=== PATIENT | female | born 1970 | race American Indian/Alaskan Native ===

== ENCOUNTER 2020-09-21 19:25 | Emergency (ER) | payer SELFPAY ==
--- NOTE | 2020-09-21 21:06 | XRay Report ---
LEFT ANKLE 4 VIEWS INDICATION / CLINICAL INFORMATION: Injury with left ankle pain.. COMPARISON: None available. FINDINGS: BONES / JOINT(S): There is internal fixation of the distal tibia. There is an acute comminuted fractu re of the distal fibular metadiaphysis with posterior and lateral angulation of the distal fracture f ragment. There is an acute transverse fracture of the medial malleolus. There is also a mildly displa ruth fracture of the posterior malleolus. There is posterior lateral dislocation of the talus in relat ionship to the tibia. A small plantar calcaneal spur is noted. SOFT TISSUES: There is moderate generalized soft tissue swelling. ADDITIONAL FINDINGS: None. IMPRESSION: Acute fracture/dislocation of the left ankle. Signer Name: Andrei Thayer MD Signed: 09/21/2020 9:01 PM Workstation Name: [id number]
[2020-09-21] MEDS ORDERED: HYDROmorphone 1 MG/1 ML INJ IV ONE ×3 (21:18→22:33)
[2020-09-21] MEDS ORDERED: ONDANSETRON 4 MG/2 ML INJ IV ONE (21:18)
--- NOTE | 2020-09-21 21:42 | Emergency Department Report ---
<CATRACHITO RIVERA III - Last Filed: 09/21/20 23:20> ED General Adult HPI - General Chief complaint: Extremity Injury, Lower Stated complaint: LT ANKLE PAIN PUI?: No Time Seen by Provider: 09/21/20 20:35 - Related Data Previous Rx's Medication Instructions Recorded Last Taken Type Naproxen 500 mg PO BID #20 tablet 09/21/20 Unknown Rx Ondansetron [Zofran Odt] 4 mg PO Q6H #12 tab.rapdis 09/21/20 Unknown Rx Oxycodone HCl/Acetaminophen 1 each PO Q6HR PRN #12 tablet 09/21/20 Unknown Rx [Percocet 10/325 mg] Allergies Allergy/AdvReac Type Severity Reaction Status Date / Time No Known Allergies Allergy Unverified 09/21/20 20:21 ED Past Medical Hx - Medications Home Medications: Home Medications Medication Instructions Recorded Confirmed Last Taken Type Naproxen 500 mg PO BID #20 tablet 09/21/20 Unknown Rx Ondansetron [Zofran Odt] 4 mg PO Q6H #12 tab.rapdis 09/21/20 Unknown Rx Oxycodone HCl/Acetaminophen 1 each PO Q6HR PRN #12 tablet 09/21/20 Unknown Rx [Percocet 10/325 mg] ED Course - Reevaluation(s) Reevaluation #1: I reviewed the findings and management of this patient in real-time and I have personally seen and examined this patient and participated in the decision making for this patient with the midlevel. Patient is a 50-year-old female that presents emergency room for status post fall and left ankle pain. Patient said pain is severe. Patient has swelling to the ankle. I examined the patient. Patient's lung sounds are clear. Patient's CV exam shows normal S1-S2 and no murmur. Patient's left ankle shows ecchymosis, swelling and tenderness to palpation. Patient had x-ray done which showed a trimalleolar and dislocation. I personally reviewed the x-ray. I discussed all results and clinical findings with patient. I discussed plan of care with patient. Patient agrees with plan of care. I will discuss the case further with our orthopedics. 09/21/20 21:43 Reevaluation #2: Patient had a reduction and splint placement. The [place] JIMENEZ I placed the splint. Patient was given Dilaudid just prior for pain. Patient was placed on the senior sales representative. Patient tolerated procedure well. Patient did not have any abnormal vital signs during the procedure. See procedure notes. 09/21/20 22:46 Reevaluation #3: The post film shows adequate reduction. I discussed all results and clinical findings with patient. I discussed plan of care with patient. Patient agrees with plan of care. Patient is stable for discharge. Patient will be discharged home. Patient given discharge instructions. Patient voiced understanding of discharge instructions. 09/21/20 23:19 - Consultations Consultation #1: I consulted Ortho, Dr. Cisneros. Dr. Cisneros states the patient can have a posterior splint placed and discharged home and he will see the patient in the office on Thursday. 09/21/20 22:29 - Orthopedic Fracture Reduction Fracture #1 Consent Obtained: verbal consent, emergent situation Time Out Performed: Yes Side: left Fracture Reduction Location: tibia, fibula Analgesia: other Technique: direct manipulation, traction/counter-traction Post-Reduction Neuro Exam: intact, no change Post-Reduction Vascular Exam: intact, no change Splint Applied: No Patient Tolerated Procedure: well, no complications - Orthopedic Joint Reduction Joint #1 Consent Obtained: verbal consent, emergent situation Time Out Performed: Yes Side: left Joint Reduction Location: ankle Analgesia: other Technique Used: traction/counter-traction, direct manipulation Post-Reduction Neuro Exam: intact, no change Post-Reduction Vascular Exam: intact, no change Post Reduction X-Ray Obtained: Yes Post Reduction X-Ray Results: reduced Splint Applied: No Patient Tolerated Procedure: well, no complications - Orthopedic Splinting/Casting Injury #1 Side: left Lower Extremity Injury Location: ankle Lower Extremity Immobilizer: posterior splint Other Orthopedic Equipment: crutches Additional Comments: Neurovascular intact post splinting. ED Medical Decision Making - Radiology Data Left ankle radiograph, 2 views HISTORY: Postreduction. COMPARISON: Same-day radiograph from 8:46 PM. FINDINGS: There is improved alignment of the ankle joint status post reduction. Marked widening of the medial ankle gutter persists. There is minimal persistent posterior subluxation of the talar dome relative to the talar plafond without dislocation. Improved alignment of lateral malleolar fracture with persistent lateral displacement. Unchanged laterally displaced medial malleolar fracture. Small posterior malleolar fracture is better seen on prior study, though grossly unchanged. Multiple small ossific fragments project within the joint space. Visualized tibial hardware remains intact. No new skeletal abnormality. IMPRESSION: 1. Improved alignment of the ankle joint status post reduction with minimal persistent posterior subluxation without dislocation. Marked widening of medial ankle gutter persists. 2. Trimalleolar ankle fractures. - Differential Diagnosis Sprain, strain, fracture, ankle pain Critical Care Time: Yes Critical care time in (mins) excluding proc time.: 35 Critical Care Time: 35 minutes ED Disposition Clinical Impression: Trimalleolar fracture of left ankle Qualifiers: Encounter type: initial encounter Fracture type: closed Qualified Code(s): S82.852A - Displaced trimalleolar fracture of left lower leg, initial encounter for closed fracture Dislocation of ankle, left, closed Qualifiers: Encounter type: initial encounter Qualified Code(s): S93.05XA - Dislocation of left ankle joint, initial encounter Disposition: - TO HOME OR SELFCARE Is pt being admited?: No Does the pt Need Aspirin: No Condition: Stable Instructions: Closed Reduction for Ankle Fracture or Dislocation, Care After, Ankle Fracture, [id number] Additional Instructions: Take Naprosyn twice daily with food as needed for pain. If Naprosyn is not sufficient in controlling your pain, take Percocet with food as directed. Do not consume alcohol while taking this medication. Do not drive or operate machinery while taking this medication. Take Zofran as directed for nausea. Keep left ankle elevated as often as possible to reduce swelling. Wear splint as directed. Use crutches as needed. Follow-up with Dr. Cisneros, orthopedics, this week. Call Thursday to schedule an appointment. See referral information below. Return to the emergency department immediately for new or worsening symptoms. Prescriptions: Naproxen 500 mg PO BID #20 tablet Oxycodone HCl/Acetaminophen [Percocet 10/325 mg] 1 each PO Q6HR PRN #12 tablet PRN Reason: Pain Ondansetron [Zofran Odt] 4 mg PO Q6H #12 tab.rapdis Referrals: JASON CISNEROS MD [Staff Physician] - 3-5 Days Forms: Work/School Release Form(ED) <NINO GUZMAN - Last Filed: 09/21/20 23:56> ED General Adult HPI - General Source: patient Mode of arrival: Ambulatory Limitations: No Limitations - History of Present Illness Initial comments: 50-year-old female patient with history of left ankle reconstruction presents to the emergency department with complaints of traumatic left ankle pain starting today. Patient states she was walking to the refrigerator when she accidentally fell and twisted her ankle. There was no resulting head injury or loss of consciousness. Patient did not take any medications prior to arrival. No other injuries. Denies hip pain, knee pain, paresthesias, numbness, weakness. Denies all other complaints at this time. Severity scale (0 -10): 9 ED Review of Systems ROS: Stated complaint: LT ANKLE PAIN Other details as noted in HPI Other: GENERAL: Negative for fever. CARDIOVASCULAR: Negative for chest pain. PULMONARY: Negative for shortness of breath. GASTROINTESTINAL: Negative for abdominal pain. MUSCULOSKELETAL: Positive for left ankle pain. NEUROLOGICAL: Negative for headache. INTEGUMENTARY: Negative for rash. ED Past Medical Hx - Past Medical History Previous Medical History?: No - Surgical History Past Surgical History?: Yes Additional Surgical History: Hardware left ankle. - Social History Smoking Status: Current Every Day Smoker Substance Use Type: Alcohol ED Physical Exam - General Limitations: No Limitations - Other Other exam information: General: Awake, appropriately interactive, no acute distress. Neck: Supple. Full range of motion intact. Cardiovascular: Normal peripheral perfusion. Pulmonary: No respiratory distress. Patient is speaking normally without use of accessory muscles. Skin: No apparent rashes or lesions. Neurological: No facial asymmetry. Speech is clear. Follows commands. Patient is alert and oriented. Musculoskeletal: Tenderness to palpation throughout the left ankle with obvious soft tissue swelling and diffuse ecchymosis. Limited range of motion in all directions secondary to pain/swelling. No plantar ecchymosis. No tenderness along the dorsum of the foot or along the base of the fifth metatarsal. Unable to bear weight. Distal neurovascular and motor/sensory function intact. Psych: Cooperative. Appropriate mood and affect. ED Course Vital Signs 09/21/20 09/21/20 09/21/20 20:13 21:30 21:31 Temperature 98.2 F Pulse Rate 94 H 87 Respiratory 18 16 18 Rate Blood Pressure 100/64 112/76 Blood Pressure [Left] O2 Sat by Pulse 97 98 Oximetry 09/21/20 09/21/20 09/21/20 21:34 21:46 22:01 Temperature Pulse Rate 87 89 Respiratory 18 22 18 Rate Blood Pressure 112/76 Blood Pressure 112/76 [Left] O2 Sat by Pulse 98 Oximetry 09/21/20 09/21/20 09/21/20 22:07 22:16 22:30 Temperature Pulse Rate 87 90 Respiratory 18 17 13 Rate Blood Pressure 103/65 107/64 Blood Pressure [Left] O2 Sat by Pulse 96 Oximetry 09/21/20 09/21/20 22:34 22:37 Temperature Pulse Rate Respiratory 18 18 Rate Blood Pressure Blood Pressure [Left] O2 Sat by Pulse Oximetry ED Medical Decision Making - Radiology Data Ordering Physician: SHARAD THOMAS MD Date of Service: 09/21/20 Procedure(s): XR ankle 3+V LT Accession Number(s): [id number] cc: SHARAD THOMAS MD Fluoro Time In Minutes: LEFT ANKLE 4 VIEWS INDICATION / CLINICAL INFORMATION: Injury with left ankle pain.. COMPARISON: None available. FINDINGS: BONES / JOINT(S): There is internal fixation of the distal tibia. There is an a cute comminuted fracture of the distal fibular metadiaphysis with posterior and lateral angulation of the distal fracture fragment. There is an acute transverse fracture of the medial malleolus. There is also a mildly displaced fracture of the posterior malleolus. There is posterior lateral dislocation of the talus in relationship to the tibia. A small plantar calcaneal spur is noted. SOFT TISSUES: There is moderate generalized soft tissue swelling. ADDITIONAL FINDINGS: None. IMPRESSION: Acute fracture/dislocation of the left ankle. Signer Name: Jason Thayer MD Signed: 09/21/2020 9:01 PM Workstation Name: [id number] Transcribed By: RT Dictated By: Jason Thayer MD Electronically Authenticated By: Jason Thayer MD Signed Date/Time: 09/21/202100 DD/ 58 TD/TT: - Medical Decision Making Differential diagnosis including but not limited to: sprain, strain, fracture, contusion, dislocation, Achilles tendon injury Patient presents to the emergency department with complaints of left ankle pain/swelling status post mechanical fall. X-ray showed trimalleolar fracture with ankle dislocation. See attached radiology report. After analgesia was achieved, the ankle was reduced and placed in a posterior splint without complications. See procedure note for details. On reevaluation, patient is stable and symptoms have improved. Pain is controlled. Repeat neurovascular exam remains intact. Repeat x-ray shows improved alignment. Case was discussed with Dr. Cisneros, orthopedics, who agrees with diagnostic work-up/plan of care and agrees to evaluate patient in the clinic on an outpatient basis. Patient will be discharged home with appropriate analgesics, crutches, and referral to orthopedics. Patient expressed understanding and is agreeable to plan of care. RICE precautions discussed. Strict return precautions provided Case discussed with Dr. Rivera, attending emergency physician, who personally evaluated the patient and agrees with diagnostic work-up/plan of care. Repeat exam is unremarkable and benign. History, exam, diagnostic testing, and current condition do not suggest worrisome pathology to warrant further testing, continued ED treatment, admission, or surgical evaluation at this point. Given the low probability of a significant medical illness, it would be more likely to result in harm than benefit to perform further testing at this stage. Discussed findings, presumptive diagnosis, need for follow-up and specific signs/symptoms that should prompt immediate return to the emergency department. Instructions were explained in detail to the patient in addition to giving written discharge information. Patient expressed understanding and was given the opportunity to ask questions, all of which were satisfactorily answered prior to discharge home. Critical care attestation.: If time is entered above; I have spent that time in minutes in the direct care of this critically ill patient, excluding procedure time. ED Disposition Is pt being admited?: No Does the pt Need Aspirin: No
--- NOTE | 2020-09-21 23:03 | XRay Report ---
Left ankle radiograph, 2 views HISTORY: Postreduction. COMPARISON: Same-day radiograph from 8:46 PM. FINDINGS: There is improved alignment of the ankle joint status post reduction. Marked widening of th e medial ankle gutter persists. There is minimal persistent posterior subluxation of the talar dome r elative to the talar plafond without dislocation. Improved alignment of lateral malleolar fracture wi th persistent lateral displacement. Unchanged laterally displaced medial malleolar fracture. Small po sterior malleolar fracture is better seen on prior study, though grossly unchanged. Multiple small os sific fragments project within the joint space. Visualized tibial hardware remains intact. No new ske letal abnormality. IMPRESSION: 1. Improved alignment of the ankle joint status post reduction with minimal persistent posterior subl uxation without dislocation. Marked widening of medial ankle gutter persists. 2. Trimalleolar ankle fractures. Signer Name: Javon Barrett MD Signed: 09/21/2020 10:58 PM Workstation Name: [id number]
[2020-09-22 00:20] VITALS: BP 113/51
== END 2020-09-21 23:30 | disposition home or self-care (01) ==
LOC: ED 19:25
DX: S82.852A Displaced trimalleolar fracture of left lower leg, initial encounter for closed fracture (principal); S93.05XA Dislocation of left ankle joint, initial encounter; Z79.899 Other long term (current) drug therapy; X58.XXXA Exposure to other specified factors, initial encounter; Y93.89 Activity, other specified; Y92.89 Other specified places as the place of occurrence of the external cause; Y99.8 Other external cause status
CPT/HCPCS: 27840; 73600; 73610; 96374; 96375; 96376; 99284; J1170; J2405

== ENCOUNTER 2020-10-01 19:18 | Emergency (ER) | payer SELFPAY ==
--- NOTE | 2020-10-02 00:15 | Emergency Department Report ---
ED General Adult HPI - General Chief complaint: Extremity Injury, Lower Stated complaint: BROKEN ANKLE RE-CHECK Time Seen by Provider: 10/01/20 22:43 Source: patient Mode of arrival: Wheelchair Limitations: Physical Limitation - History of Present Illness Initial comments: This is a 50-year-old female nontoxic, well nourished in appearance, no acute signs of distress presents to the ED for reassessment/follow-up of left ankle. Patient was seen several days ago and for dislocated/fractured ankle and has posterior OCL splint. Patient stated has worsening swelling and numbness/tingling sensation to left foot/ankle area. Patient denies any new injuries or trauma. Patient stated she just came to the ER for follow-up or for fracture as she was not able to follow-up with orthopedic doctor as instructed to her during her previous visit. Patient denies any fever, chills, nausea, vomiting, chest pain, shortness of breath, headache, stiff neck. Patient denies any joint swelling or joint redness. Patient denies any allergies. Location: lower extremity Radiation: non-radiation Severity scale (0 -10): 3 Quality: aching Consistency: constant Improves with: none Worsens with: none Associated Symptoms: denies other symptoms. denies: confusion, chest pain, cough, diaphoresis, fever/chills, headaches, loss of appetite, malaise, nausea/vomiting, rash, seizure, shortness of breath, syncope, weakness Treatments Prior to Arrival: none - Related Data Previous Rx's Medication Instructions Recorded Last Taken Type Naproxen 500 mg PO BID #20 tablet 09/21/20 Unknown Rx Ondansetron [Zofran Odt] 4 mg PO Q6H #12 tab.rapdis 09/21/20 Unknown Rx Oxycodone HCl/Acetaminophen 1 each PO Q6HR PRN #12 tablet 09/21/20 Unknown Rx [Percocet 10/325 mg] Allergies Allergy/AdvReac Type Severity Reaction Status Date / Time No Known Allergies Allergy Unverified 09/21/20 20:21 ED Review of Systems ROS: Stated complaint: BROKEN ANKLE RE-CHECK Other details as noted in HPI Comment: All other systems reviewed and negative Constitutional: denies: chills, fever Eyes: denies: eye pain, eye discharge, vision change ENT: denies: ear pain, throat pain Respiratory: denies: cough, shortness of breath, wheezing Cardiovascular: denies: chest pain, palpitations Endocrine: no symptoms reported Gastrointestinal: denies: abdominal pain, nausea, diarrhea Genitourinary: denies: urgency, dysuria, discharge Musculoskeletal: denies: back pain, joint swelling, arthralgia Skin: denies: rash, lesions Neurological: denies: headache, weakness, paresthesias Psychiatric: denies: anxiety, depression Hematological/Lymphatic: denies: easy bleeding, easy bruising ED Past Medical Hx - Past Medical History Previous Medical History?: No - Surgical History Past Surgical History?: Yes Additional Surgical History: Hardware left ankle. - Social History Smoking Status: Current Every Day Smoker Substance Use Type: Alcohol - Medications Home Medications: Home Medications Medication Instructions Recorded Confirmed Last Taken Type Naproxen 500 mg PO BID #20 tablet 09/21/20 Unknown Rx Ondansetron [Zofran Odt] 4 mg PO Q6H #12 tab.rapdis 09/21/20 Unknown Rx Oxycodone HCl/Acetaminophen 1 each PO Q6HR PRN #12 tablet 09/21/20 Unknown Rx [Percocet 10/325 mg] ED Physical Exam - General Limitations: No Limitations General appearance: alert, in no apparent distress - Head Head exam: Present: atraumatic, normocephalic - Eye Eye exam: Present: normal appearance - Neck Neck exam: Present: normal inspection, full ROM. Absent: lymphadenopathy - Respiratory Respiratory exam: Absent: respiratory distress - Cardiovascular Cardiovascular Exam: Present: normal rhythm - Extremities Exam Extremities exam: Present: normal capillary refill. Absent: joint swelling - Expanded Lower Extremity Exam Left Hip exam: Present: normal inspection, full ROM. Absent: tenderness, swelling Upper Leg exam: Present: normal inspection, full ROM. Absent: tenderness, swelling Knee exam: Present: normal inspection, full ROM, full knee extension. Absent: tenderness, swelling, abrasion, laceration, ecchymosis, deformity, crepidus, dislocation, erythema, effusion, pain w/ pronation/supination, posterior draw sign, pain/laxity with valgus, pain/laxity with varus Lower Leg exam: Present: normal inspection, full ROM. Absent: tenderness, swelling, abrasion, laceration, ecchymosis, deformity, crepidus, dislocation, erythema, palpable cord, Vance's sign Ankle exam: Present: tenderness, swelling, ecchymosis. Absent: abrasion, laceration, deformity, crepidus, dislocation, erythema, anterior draw sign Foot/Toe exam: Present: full ROM, tenderness, swelling, ecchymosis. Absent: abrasion, laceration, deformity, crepidus, dislocation, erythema, amputation, puncture wound, foreign body, calcaneal tenderness, tenderness at base of 5th metatarsal, nail avulsion, subungual hematoma Neuro vascular tendon exam: Present: no vascular compromise Gait: Positive: unable to bear weight - Back Exam Back exam: Present: full ROM - Neurological Exam Neurological exam: Present: alert, oriented X3 - Psychiatric Psychiatric exam: Present: normal affect, normal mood - Skin Skin exam: Present: warm, dry, intact, normal color. Absent: rash - Other Other exam information: short leg posterior splint present to left leg. Cecil laundry aide removed with me holding the ankle to make sure it did not move with history of dislocation. After reviewing it, a new splint a has placed. Post splint: Neurovasular intact; normal cap refill <2 second; normal sensation; denies decreaed sensation; normal ROM of digits. ED Course Vital Signs 10/02/20 01:20 Temperature 98.2 F Pulse Rate 90 Respiratory 20 Rate Blood Pressure 112/62 [Left] O2 Sat by Pulse 98 Oximetry - Reevaluation(s) Reevaluation #1: 10/02/20 00:25 Patient is speaking in full sentences with no signs of distress noted. ED Medical Decision Making - Medical Decision Making 50-year-old female that presents with reevaluation of splint. Patient is stable and was examined by me. All splint has been removed and a new splint has been applied with no manipulation due to previous dislocation. Post splint assessment: neurovasular intact; normal cap refill <2 second; normal sensation; denies decreaed sensation; normal ROM of digits. Patient also does have cru tches from previous visit. Patient was instructed to follow-up with a orthopedic doctor in 3-5 days or if symptoms worsen and continue return to emergency room as soon as possible. At time of discharge, the patient does not seem toxic or ill in appearance. No acute signs of distress noted. Patient agrees to discharge treatment plan of care. No further questions noted by the patient. Critical care attestation.: If time is entered above; I have spent that time in minutes in the direct care of this critically ill patient, excluding procedure time. ED Disposition Clinical Impression: Aftercare for cast or splint check or change Disposition: - TO HOME OR SELFCARE Is pt being admited?: No Does the pt Need Aspirin: No Condition: Stable Instructions: Cast or Splint Care, Adult Additional Instructions: Follow-up with a orthopedic doctor in 3-5 days or if symptoms worsen and continue return to emergency room as soon as possible. No physical activity that extremity until cleared by orthopedic doctor Referrals: PRIMARY MD WILTON [Primary Care Provider] - 3-5 Days JASON NEAL MD [Staff Physician] - 3-5 Days Time of Disposition: 01:25
[2020-10-02 01:21] VITALS: BP 112/62
== END 2020-10-02 01:30 | disposition home or self-care (01) ==
LOC: ED 19:18
DX: M25.572 Pain in left ankle and joints of left foot (principal)
CPT/HCPCS: 99282

== ENCOUNTER 2021-10-26 09:12 | Emergency (ER) | payer SELFPAY ==
[2021-10-26 10:42] LABS: Hyaline Casts,Urine 1 /LPF; Mucus,Urine FEW /HPF
[2021-10-26 10:58] LABS: Bilirubin,Urine Negative (Negative); Blood,Urine Negative (Negative); Color,Urine Straw (Yellow)
[2021-10-26 11:26] LABS: Basophils % (Auto) 0.4 % (0.0-1.8); Eosinophils # (Auto) 0.1 K/mm3 (0.0-0.4); Hematocrit 39.8 % (30.3-42.9); Lymphocytes # (Auto) 2.3 K/mm3 (1.2-5.4); Lymphocytes % (Auto) 25.7 % (13.4-35.0); Mean Corpuscular HGB Conc 33 % (30-34); Mean Corpuscular Volume 92 fl (79-97); Monocytes # (Auto) 0.6 K/mm3 (0.0-0.8); Monocytes % (Auto) 7.2 % (0.0-7.3); Platelet Count 292 K/mm3 (140-440); Red Blood Count 4.34 M/mm3 (3.65-5.03); Red Cell Distribution Width 12.6 % (13.2-15.2)
[2021-10-26 11:42] LABS: Alanine Aminotransferase 42 units/L (7-56); Albumin 3.6 g/dL (3.9-5); Blood Urea Nitrogen 2 mg/dL (7-17); Calcium 8.2 mg/dL (8.4-10.2); Hemolysis Index 4
[2021-10-26 11:43] LABS: BUN/Creatinine Ratio 4
--- NOTE | 2021-10-26 13:17 | Emergency Department Report ---
ED General Adult HPI - General Chief complaint: Hyperglycemia Stated complaint: HIGH SUGAR MIGHT HAVE ANEURYSM Time Seen by Provider: 10/26/21 12:47 Source: patient Mode of arrival: Ambulatory Limitations: No Limitations - History of Present Illness Initial comments: 45-year-old female past medical history of diabetes reports to the ER with complaints of felt like her blood sugar is elevated. Patient also reports bilateral feet and hand tingling that feels like [id number]. Patient reports taking metformin at 1000 mg twice daily. Patient reports she has not had a primary care provider who manages her diabetes. Patient denies weakness, headaches, dizziness, fever, nausea, no vomiting. Patient fingerstick blood glucose was 190. Patient reports she does not have the best diet, she grabs what ever she can undergo. Patient does report she drinks water more than any other fluids. No other acute signs or symptoms reported this time. Severity scale (0 -10): 9 - Related Data Previous Rx's Medication Instructions Recorded Last Taken Type Naproxen 500 mg PO BID #20 tablet 09/21/20 Unknown Rx Ondansetron [Zofran Odt] 4 mg PO Q6H #12 tab.rapdis 09/21/20 Unknown Rx Oxycodone HCl/Acetaminophen 1 each PO Q6HR PRN #12 tablet 09/21/20 Unknown Rx [Percocet 10/325 mg] Blood Sugar Diagnostic [Test 1 each MC TID 30 Days #90 strip 10/26/21 Unknown Rx Strips] Blood-Glucose Meter [Blood Glucose 1 each MC TID #1 each 10/26/21 Unknown Rx Monitoring] Lancets 1 each MC TID 30 Days #90 each 10/26/21 Unknown Rx Metformin HCl [metFORMIN] 1,000 mg PO BID 30 Days #60 tab 10/26/21 Unknown Rx Allergies Allergy/AdvReac Type Severity Reaction Status Date / Time No Known Allergies Allergy Unverified 09/21/20 20:21 ED Review of Systems ROS: Stated complaint: HIGH SUGAR MIGHT HAVE ANEURYSM Other details as noted in HPI Comment: All other systems reviewed and negative ED Past Medical Hx - Past Medical History Previous Medical History?: Yes Hx Diabetes: Yes - Surgical History Past Surgical History?: Yes Additional Surgical History: Hardware left ankle. - Social History Smoking Status: Current Every Day Smoker Substance Use Type: Alcohol - Medications Home Medications: Home Medications Medication Instructions Recorded Confirmed Last Taken Type Naproxen 500 mg PO BID #20 tablet 09/21/20 Unknown Rx Ondansetron [Zofran Odt] 4 mg PO Q6H #12 tab.rapdis 09/21/20 Unknown Rx Oxycodone HCl/Acetaminophen 1 each PO Q6HR PRN #12 tablet 09/21/20 Unknown Rx [Percocet 10/325 mg] Blood Sugar Diagnostic [Test 1 each MC TID 30 Days #90 strip 10/26/21 Unknown Rx Strips] Blood-Glucose Meter [Blood Glucose 1 each MC TID #1 each 10/26/21 Unknown Rx Monitoring] Lancets 1 each MC TID 30 Days #90 each 10/26/21 Unknown Rx Metformin HCl [metFORMIN] 1,000 mg PO BID 30 Days #60 tab 10/26/21 Unknown Rx ED Physical Exam - General Limitations: No Limitations ED Course Vital Signs 10/26/21 10/26/21 09:37 17:04 Temperature 99 F 98.5 F Pulse Rate 91 H 77 Respiratory 20 18 Rate Blood Pressure 118/71 139/87 [Right] O2 Sat by Pulse 99 100 Oximetry ED Medical Decision Making - Lab Data Result diagrams: 10/26/21 10:28 10/26/21 15:33 - Medical Decision Making 45-year-old female past medical history of diabetes reports to the ER with complaints of felt like her blood sugar is elevated. Patient also reports bilateral feet and hand tingling that feels like [id number]. Patient reports taking metformin at 1000 mg twice daily. Patient reports she has not had a primary care provider who manages her diabetes. Patient denies weakness, headaches, dizziness, fever, nausea, no vomiting. Patient fingerstick blood glucose was 190. Patient reports she does not have the best diet, she grabs what ever she can undergo. Patient does report she drinks water more than any other fluids. No other acute signs or symptoms reported this time. On physical exam patient has no acute signs and symptoms. No abdominal pain. No confusion, no dizziness, no weakness. Lab workpotassium was 2.5 initially 40 mEq of oral potassium given repeat shows potassium 3.0. Initial glucose was 236 per CMP. On repeat BMP glucose was 197. Patient states that she has not taken her metformin for this morning. Patient does have provider she just recently took her metformin while here in the ER. No coverage for elevated glucose due to patient taking her all medications here in ER. 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 Patient stable for discharge. Patient still reports no acute signs and symptoms at this time. Patient will be given referral to primary care providers within the area. Patient will receive a refill of her metformin 1000 mg twice a day. This is verified by patient's current metformin bottle. Patient agrees with plan of care and verbalized understanding. Patient informed to start experiencing elevated blood glucose levels were acute symptoms such as nausea, vomiting, dizziness, weakness, fatigue or fevers to report back to the ER. Patient also informed to get blood glucose strips and testing monitor and lancets from nearby local pharmacies to help monitor her blood glucose. Patient stable for discharge home. Vital Signs 10/26/21 09:37 Temperature 99 F Pulse Rate 91 H Respiratory 20 Rate Blood Pressure 118/71 [Right] O2 Sat by Pulse 99 Oximetry Vital Signs 10/26/21 10/26/21 09:37 17:04 Temperature 99 F 98.5 F Pulse Rate 91 H 77 Respiratory 20 18 Rate Blood Pressure 118/71 139/87 [Right] O2 Sat by Pulse 99 100 Oximetry Labs 10/26/21 10/26/21 10/26/21 10:28 10:28 15:33 WBC 9.0 RBC 4.34 Hgb 13.0 Hct 39.8 MCV 92 MCH 30 MCHC 33 RDW 12.6 L Plt Count 292 Lymph % (Auto) 25.7 Sharkey % (Auto) 7.2 Eos % (Auto) 1.0 Baso % (Auto) 0.4 Lymph # (Auto) 2.3 Sharkey # (Auto) 0.6 Eos # (Auto) 0.1 Baso # (Auto) 0.0 Seg Neutrophils % 65.7 Seg Neutrophils # 5.9 Sodium 141 142 Potassium 2.5 L* 3.0 L Chloride 94.8 L 95.4 L Carbon Dioxide 28 29 Anion Gap 21 21 BUN 2 L 2 L Creatinine 0.5 L 0.5 L Estimated GFR > 60 > 60 BUN/Creatinine Ratio 4 4 Glucose 236 H 197 H Calcium 8.2 L 7.9 L Total Bilirubin 0.50 AST 100 H ALT 42 Alkaline Phosphatase 109 Total Protein 7.1 Albumin 3.6 L Albumin/Globulin Ratio 1.0 Urine Color Urine Turbidity Urine pH Ur Specific [place] Urine Protein Urine Glucose (UA) Urine Ketones Urine Blood Urine Nitrite Ur Reducing Substances Urine Bilirubin Urine Ictotest Urine Urobilinogen Ur Leukocyte Esterase Urine WBC (Auto) Urine RBC (Auto) U Epithel Cells (Auto) Hyaline Casts Urine Mucus 10/26/21 Unknown WBC RBC Hgb Hct MCV MCH MCHC RDW Plt Count Lymph % (Auto) Sharkey % (Auto) Eos % (Auto) Baso % (Auto) Lymph # (Auto) Sharkey # (Auto) Eos # (Auto) Baso # (Auto) Seg Neutrophils % Seg Neutrophils # Sodium Potassium Chloride Carbon Dioxide Anion Gap BUN Creatinine Estimated GFR BUN/Creatinine Ratio Glucose Calcium Total Bilirubin AST ALT Alkaline Phosphatase Total Protein Albumin Albumin/Globulin Ratio Urine Color Straw Urine Turbidity Clear Urine pH 6.0 Ur Specific [place] 1.010 Urine Protein 30 mg/dl Urine Glucose (UA) Negative Urine Ketones 5 Urine Blood Negative Urine Nitrite Negative Ur Reducing Substances Not Reportable Urine Bilirubin Negative Urine Ictotest Not Reportable Urine Urobilinogen 1.0 Ur Leukocyte Esterase Negative Urine WBC (Auto) 1.0 Urine RBC (Auto) 1.0 U Epithel Cells (Auto) 2.0 Hyaline Casts 1 Urine Mucus Few Lab Results 10/26/21 10/26/21 10/26/21 Range/Units 10:28 10:28 15:33 WBC 9.0 (4.5-11.0) K/mm3 RBC 4.34 (3.65-5.03) M/mm3 Hgb 13.0 (10.1-14.3) gm/dl Hct 39.8 (30.3-42.9) % MCV 92 (79-97) fl MCH 30 (28-32) pg MCHC 33 (30-34) % RDW 12.6 L (13.2-15.2) % Plt Count 292 (140-440) K/mm3 Lymph % (Auto) 25.7 (13.4-35.0) % Sharkey % (Auto) 7.2 (0.0-7.3) % Eos % (Auto) 1.0 (0.0-4.3) % Baso % (Auto) 0.4 (0.0-1.8) % Lymph # (Auto) 2.3 (1.2-5.4) K/mm3 Sharkey # (Auto) 0.6 (0.0-0.8) K/mm3 Eos # (Auto) 0.1 (0.0-0.4) K/mm3 Baso # (Auto) 0.0 (0.0-0.1) K/mm3 Seg Neutrophils % 65.7 (40.0-70.0) % Seg Neutrophils # 5.9 (1.8-7.7) K/mm3 Sodium 141 142 (137-145) mmol/L Potassium 2.5 L* 3.0 L (3.6-5.0) mmol/L Chloride 94.8 L 95.4 L (98-107) mmol/L Carbon Dioxide 28 29 (22-30) mmol/L Anion Gap 21 21 mmol/L BUN 2 L 2 L (7-17) mg/dL Creatinine 0.5 L 0.5 L (0.6-1.2) mg/dL Estimated GFR > 60 > 60 ml/min BUN/Creatinine Ratio 4 4 % Glucose 236 H 197 H (65-100) mg/dL Calcium 8.2 L 7.9 L (8.4-10.2) mg/dL Total Bilirubin 0.50 (0.1-1.2) mg/dL AST 100 H (5-40) units/L ALT 42 (7-56) units/L Alkaline Phosphatase 109 (35-129) units/L Total Protein 7.1 (6.3-8.2) g/dL Albumin 3.6 L (3.9-5) g/dL Albumin/Globulin Ratio 1.0 % Urine Color (Yellow) Urine Turbidity (Clear) Urine pH (5.0-7.0) Ur Specific [place] (1.003-1.030) Urine Protein (Negative) mg/dL Urine Glucose (UA) (Negative) mg/dL Urine Ketones (Negative) mg/dL Urine Blood (Negative) Urine Nitrite (Negative) Ur Reducing Substances Urine Bilirubin (Negative) Urine Ictotest Urine Urobilinogen (<2.0) mg/dL Ur Leukocyte Esterase (Negative) Urine WBC (Auto) (0.0-6.0) /HPF Urine RBC (Auto) (0.0-6.0) /HPF U Epithel Cells (Auto) (0-13.0) /HPF Hyaline Casts /LPF Urine Mucus /HPF 10/26/21 Range/Units Unknown WBC (4.5-11.0) K/mm3 RBC (3.65-5.03) M/mm3 Hgb (10.1-14.3) gm/dl Hct (30.3-42.9) % MCV (79-97) fl MCH (28-32) pg MCHC (30-34) % RDW (13.2-15.2) % Plt Count (140-440) K/mm3 Lymph % (Auto) (13.4-35.0) % Sharkey % (Auto) (0.0-7.3) % Eos % (Auto) (0.0-4.3) % Baso % (Auto) (0.0-1.8) % Lymph # (Auto) (1.2-5.4) K/mm3 Sharkey # (Auto) (0.0-0.8) K/mm3 Eos # (Auto) (0.0-0.4) K/mm3 Baso # (Auto) (0.0-0.1) K/mm3 Seg Neutrophils % (40.0-70.0) % Seg Neutrophils # (1.8-7.7) K/mm3 Sodium (137-145) mmol/L Potassium (3.6-5.0) mmol/L Chloride (98-107) mmol/L Carbon Dioxide (22-30) mmol/L Anion Gap mmol/L BUN (7-17) mg/dL Creatinine (0.6-1.2) mg/dL Estimated GFR ml/min BUN/Creatinine Ratio % Glucose (65-100) mg/dL Calcium (8.4-10.2) mg/dL Total Bilirubin (0.1-1.2) mg/dL AST (5-40) units/L ALT (7-56) units/L Alkaline Phosphatase (35-129) units/L Total Protein (6.3-8.2) g/dL Albumin (3.9-5) g/dL Albumin/Globulin Ratio % Urine Color Straw (Yellow) Urine Turbidity Clear (Clear) Urine pH 6.0 (5.0-7.0) Ur Specific [place] 1.010 (1.003-1.030) Urine Protein 30 mg/dl (Negative) mg/dL Urine Glucose (UA) Negative (Negative) mg/dL Urine Ketones 5 (Negative) mg/dL Urine Blood Negative (Negative) Urine Nitrite Negative (Negative) Ur Reducing Substances Not Reportable Urine Bilirubin Negative (Negative) Urine Ictotest Not Reportable Urine Urobilinogen 1.0 (<2.0) mg/dL Ur Leukocyte Esterase Negative (Negative) Urine WBC (Auto) 1.0 (0.0-6.0) /HPF Urine RBC (Auto) 1.0 (0.0-6.0) /HPF U Epithel Cells (Auto) 2.0 (0-13.0) /HPF Hyaline Casts 1 /LPF Urine Mucus Few /HPF Critical care attestation.: If time is entered above; I have spent that time in minutes in the direct care of this critically ill patient, excluding procedure time. ED Disposition Clinical Impression: Blood glucose elevated, Hypokalemia Diabetes Qualifiers: Diabetes mellitus type: type 2 Diabetes mellitus fci insulin use: without shorthand teacher use Diabetes mellitus complication status: without complication Qualified Code(s): E11.9 - Type 2 diabetes mellitus without complications Disposition: HOME / SELF CARE / HOMELESS Is pt being admited?: No Condition: Stable Instructions: Type 2 Diabetes Mellitus, Diagnosis, Adult, Hypokalemia, Type 2 Diabetes Mellitus, Self Care, Adult, Potassium Content of Foods, Carbohydrate Counting for Diabetes Mellitus, Adult, Preventing Diabetes Mellitus Complications, Diabetes Mellitus Type 2 in Adults (ED) Prescriptions: Blood-Glucose Meter [Blood Glucose Monitoring] 1 each MC TID #1 each Lancets 1 each MC TID 30 Days #90 each Metformin HCl [metFORMIN] 1,000 mg PO BID 30 Days #60 tab Blood Sugar Diagnostic [Test Strips] 1 each TID 30 Days #90 strip Referrals: KAYLYN JOHNSTON MD [Primary Care Provider] - 3-5 Days [facility] [Outside] - 3-5 Days [facility] [Outside] - 3-5 Days [facility] [Outside] - 3-5 Days [facility] [Outside] - 3-5 Days
[2021-10-26] MEDS ORDERED: POTASSIUM CHLORIDE ER 20 MEQ TAB PO ONE (13:22)
[2021-10-26 16:17] LABS: Blood Urea Nitrogen 2 mg/dL (7-17); Calcium 7.9 mg/dL (8.4-10.2); Hemolysis Index 2
[2021-10-26 16:20] LABS: BUN/Creatinine Ratio 4
[2021-10-26 17:06] VITALS: BP 139/87
== END 2021-10-26 17:04 | disposition home or self-care (01) ==
LOC: ED 09:12
DX: E11.9 Type 2 diabetes mellitus without complications (principal); E87.6 Hypokalemia; F17.200 Nicotine dependence, unspecified, uncomplicated; Z72.89 Other problems related to lifestyle; Z79.899 Other long term (current) drug therapy
CPT/HCPCS: 36415; 80048; 80053; 81001; 85025; 99283